=== PATIENT | male | born 1995 | race Caucasian/White ===

== ENCOUNTER 2023-04-01 21:54 | Emergency (ER) | payer OTHER ==
[~2023-04-01] VITALS: Ht 170.2 cm; Wt 93.4 kg
[2023-04-01 22:10] VITALS: BP 140/84; PULSE 79; RESP 17; TEMP 97.9; O2SAT 98
[2023-04-01] MEDS ORDERED: diazePAM 5 MG TAB PO ONE (23:10)
[2023-04-01] MEDS ORDERED: KETOROLAC 30 MG/ML VIAL IM ONE (23:10)
[2023-04-02] MEDS ORDERED: NAPR-54 PO (00:22)
[2023-04-02] MEDS ORDERED: CYCL-711 PO (00:22)
[2023-04-02 00:35] VITALS: BP 129/70; PULSE 69; RESP 17; TEMP 97.9; O2SAT 98
== END 2023-04-02 00:35 | disposition home or self-care (01) ==
LOC: MED 21:54
DX: S00.83XA Contusion of other part of head, initial encounter (principal); V49.88XA Car occupant (driver) (passenger) injured in other specified transport accidents, initial encounter; Y93.89 Activity, other specified; Y92.89 Other specified places as the place of occurrence of the external cause; Y99.8 Other external cause status
CPT/HCPCS: 70450; 70486; 71045; 96372; 99285; J1885

== ENCOUNTER 2024-02-07 08:41 | Emergency (ER) | payer OTHER ==
[~2024-02-07] VITALS: Ht 170.2 cm; Wt 86.0 kg
[~2024-02-07 08:41] MED LIST: CYCL-711 PO; NAPR-337 PO
[2024-02-07 08:43] VITALS: BP 130/80; PULSE 96; RESP 15; TEMP 98.5; O2SAT 98
[2024-02-07 09:45] LABS: BASOPHILS % (AUTO) 0.3 % (0.0-2.0); EOSINOPHILS % (AUTO) 0.2 % (0.0-4.0); HEMATOCRIT 45.2 % (36-52); HEMOGLOBIN 15.3 g/dL (12.0-18.0); LYMPHOCYTES # (AUTO) 1.6 K/uL (2.0-11.5); LYMPHOCYTES % (AUTO) 13.3 % (20.5-51.1); MEAN CORPUSCULAR HEMOGLOBIN 29 pg (27-31); MEAN CORPUSCULAR HGB CONC 34 g/dL (33-37); MEAN CORPUSCULAR VOLUME 86.1 fL (80-94); MONOCYTES # (AUTO) 0.8 K/uL (0.8-1.0); NEUTROPHILS # (AUTO) 9.5 K/uL (1.8-7.7); NEUTROPHILS % (AUTO) 79.2 % (42.2-75.2); PLATELET COUNT (AUTO) 198 K/uL (140-450); RED BLOOD CELL COUNT(AUTO) 5.25 MIL/uL (4.20-6.10); RED CELL DISTRIBUTION WIDTH 13.5 % (11.6-13.7)
[2024-02-07 09:56] LABS: ANION GAP 12.8 (8-16); CALCIUM 9.2 mg/dL (8.5-10.1); CARBON DIOXIDE 25.8 mmol/L (21-32); CREATININE 0.9 mg/dL (0.6-1.3); POTASSIUM 3.6 mmol/L (3.5-5.1)
[2024-02-07 10:02] LABS: ALBUMIN 3.9 g/dL (3.4-5.0); BILIRUBIN,DIRECT 0.1 mg/dL (0.0-0.3); TOTAL BILIRUBIN 0.7 mg/dL (0.0-1.0); TOTAL PROTEIN, SERUM 7.6 g/dL (6.4-8.2)
[2024-02-07] MEDS: ONDANSETRON 4 MG ODT PO ONE (10:05)
[2024-02-07] MEDS: ACETAMINOPHEN EXTRA STRENGTH 500 MG TAB PO ONE (10:07)
[2024-02-07] MEDS: KETOROLAC 30 MG/ML VIAL IM ONE (10:08)
[2024-02-07 11:11] LABS: FLU A ANTIGEN negative (NEGATIVE); FLU B ANTIGEN negative (NEGATIVE)
[2024-02-07 11:30] VITALS: BP 130/80; PULSE 96; RESP 15; TEMP 98.5; O2SAT 98
== END 2024-02-07 11:30 | disposition home or self-care (01) ==
LOC: MED 08:41
DX: B34.9 Viral infection, unspecified (principal); Z20.822 Contact with and (suspected) exposure to COVID-19; Z79.899 Other long term (current) drug therapy
CPT/HCPCS: 36415; 80048; 80076; 83690; 85025; 87426; 87804; 96372; 99283; J1885; Q0162

== ENCOUNTER 2024-02-13 12:13 | Emergency (ER) | payer OTHER ==
[~2024-02-13] VITALS: Ht 170.2 cm; Wt 84.4 kg
[2024-02-13 12:26] VITALS: BP 121/77; PULSE 129; RESP 19; TEMP 100.1; O2SAT 98
[2024-02-13 13:08] LABS: FLU A ANTIGEN negative (NEGATIVE); FLU B ANTIGEN NEGATIVE (NEGATIVE)
[2024-02-13] MEDS ORDERED: ONDA-188 SL (13:22)
[2024-02-13] MEDS ORDERED: AMOX875T3 PO (13:22)
[2024-02-13] MEDS ORDERED: IBUP-2213 PO (13:23)
[2024-02-13] MEDS: IBUPROFEN 600 MG TAB PO ONE (13:37)
[2024-02-13] MEDS: ONDANSETRON 4 MG ODT PO ONE (13:37)
[2024-02-13 14:00] VITALS: TEMP 98.6
--- NOTE | 2024-02-13 14:00 | NUR ---
Patient discharged with v/s stable. Written and verbal after care instructions given and explained. Patient verbalized understanding. Ambulatory with steady gait. All questions addressed prior to discharge. Advised to follow up with PMD.
== END 2024-02-13 14:00 | disposition home or self-care (01) ==
LOC: MED 12:13
DX: J06.9 Acute upper respiratory infection, unspecified (principal); Z20.822 Contact with and (suspected) exposure to COVID-19; Z79.899 Other long term (current) drug therapy
CPT/HCPCS: 71045; 87426; 87804; 99284; Q0162